=== PATIENT | male | born 1935 | race Caucasian/White ===

== ENCOUNTER 2019-11-17 18:03 | Emergency (ER) | payer OTHER ==
[~2019-11-17] VITALS: Ht 160 cm; Wt 68.0 kg
--- NOTE | 2019-11-17 18:03 | NUR ---
Placed in room 1. Placed on armored car guard and driver, blood pressure machine and pulse oximeter. To gown for exam. Side rails up. Report given to NICOLASA Monzon.
--- NOTE | 2019-11-17 18:06 | NUR ---
ECG done at bedside as ordered by Dr. Chrales. Patient tolerated the procedure well. Report given to
[2019-11-17 18:07] VITALS: BP_SYST 116
--- NOTE | 2019-11-17 18:08 | NUR ---
ER at bedside examining patient.
--- NOTE | 2019-11-17 18:11 | NUR ---
pt arrives from a chemo center. Pt was receiving chemo when he became hypotensive w/ a SBP in the 70's. PT received is currently infusing NS 1l. IV is on the LFA 22g. Current BP is 132/69, HR 92, RR 18, 97.2. Cardiac monitorn placed. Will continue to monitor.
[2019-11-17] MEDS ORDERED: ASPIRIN 81 MG TAB.CHEW PO ONE (18:30)
--- NOTE | 2019-11-17 18:38 | NUR ---
medicated the pt w/ Aspirin PO per MD order.
[2019-11-17] MEDS ORDERED: DOCU250C14 PO (18:42)
[2019-11-17] MEDS ORDERED: ACET-73 PO (18:42)
[2019-11-17] MEDS ORDERED: APIX2.5T PO (18:42)
[2019-11-17] MEDS ORDERED: RANI-362 PO (18:42)
[2019-11-17] MEDS ORDERED: MULT-1089 PO (18:42)
[2019-11-17] MEDS ORDERED: CHOL100035 PO (18:42)
[2019-11-17] MEDS ORDERED: METO25TA3 PO (18:42)
[2019-11-17] MEDS ORDERED: HYT1 PO (18:42)
--- NOTE | 2019-11-17 19:15 | NUR ---
Pt report received. Pt AAOx4, family member at bedside and no needs verbalized at this time.
--- NOTE | 2019-11-17 19:18 | NUR ---
report given to Akhil Dyer. Pt is in stable condition.
--- NOTE | 2019-11-17 19:20 | NUR ---
Lab at bedside.
[2019-11-17 19:30] LABS: BASOPHILS % (AUTO) 0.4 % (0.0-2.0); EOSINOPHILS % (AUTO) 0.5 % (0.0-4.0); HEMATOCRIT 31.7 % (36-54); HEMOGLOBIN 10.6 g/dL (14.0-18.0); LYMPHOCYTES # (AUTO) 0.4 K/uL (1.0-5.5); LYMPHOCYTES % (AUTO) 8.8 % (20.5-51.5); MEAN CORPUSCULAR HEMOGLOBIN 30 pg (27-31); MEAN CORPUSCULAR HGB CONC 33 % (32-36); MEAN CORPUSCULAR VOLUME 91 fL (79.0-98.0); MONOCYTES # (AUTO) 0.1 K/uL (0.0-1.0); MONOCYTES % (AUTO) 3.3 % (1.7-9.3); NEUTROPHILS # (AUTO) 3.9 K/uL (1.8-7.7); PLATELET COUNT (AUTO) 51 K/uL (130-430); RED BLOOD CELL COUNT(AUTO) 3.48 MIL/uL (4.2-6.2); RED CELL DISTRIBUTION WIDTH 19.8 % (9.0-15.0); WHITE BLOOD COUNT (AUTO) 4.4 K/uL (4.8-10.8)
[2019-11-17 19:40] LABS: ANION GAP 7 (5-15); CALCIUM 7.8 mg/dL (8.4-11.0); CHLORIDE 107 mmol/L (98-107); CREATININE 1.56 mg/dL (0.55-1.30); GLUCOSE 183 mg/dL (70-99); POTASSIUM 4.9 mmol/L (3.5-5.1); SODIUM SERUM 136 mmol/L (136-145); UREA NITROGEN, BLOOD 27 mg/dL (8-21)
[2019-11-17 19:53] LABS: ALANINE AMINOTRANSFERASE 11 U/L (12-78); ALBUMIN 2.4 g/dL (3.4-4.8); ASPARTATE AMINOTRANSFERASE 17 U/L (10-37); TOTAL BILIRUBIN 0.4 mg/dL (0.0-1.0)
--- NOTE | 2019-11-17 20:05 | NUR ---
Dr. Wisdom at bedside.
--- NOTE | 2019-11-17 20:15 | NUR ---
Pt denies pain or discomfort, no needs verbalized. Addendum: 11/17/19 at 2132 by ROXANN [address] to [facility] FREIGHT COORDINATOR. Patent and secure, no s/s infiltration.
[2019-11-17] MEDS ORDERED: NS 500 ML IV ONE (20:30)
--- NOTE | 2019-11-17 20:55 | NUR ---
Maria Fernanda renee in ED - 11/17/19 at 2104 by KALANIJ Pt to CT via W/C in stable condition.
--- NOTE | 2019-11-17 21:00 | NUR ---
Note thelma in ED - 11/17/19 at 2105 by [email or web address] Pt returns from CT. No needs verbalized at this time.
[2019-11-17 21:15] VITALS: BP_SYST 108
--- NOTE | 2019-11-17 21:15 | NUR ---
Patient given written and verbal discharge instructions and verbalizes understanding. ER MD discussed with patient the results and treatment provided. Patient in stable condition. ID arm band removed. IV catheter removed intact and dressing applied, no active bleeding. Rx of Atarax given. Patient educated on pain management and to follow up with PMD. Pain Scale 0/10. Opportunity for questions provided and answered. Medication side effect fact sheet provided.
== END 2019-11-17 21:15 | disposition home or self-care (01) ==
LOC: SED 18:03
DX: L50.0 Allergic urticaria (principal); N17.9 Acute kidney failure, unspecified; I10 Essential (primary) hypertension; R11.0 Nausea; Z85.9 Personal history of malignant neoplasm, unspecified; Z79.899 Other long term (current) drug therapy
CPT/HCPCS: 36415; 71045; 80053; 82550; 83880; 84484; 85025; 93005; 96360; 99285; J7040

== ENCOUNTER 2020-04-04 16:23 | Emergency (ER) | payer OTHER ==
[~2020-04-04] VITALS: Ht 170.2 cm; Wt 49.9 kg
[2020-04-04 16:23] VITALS: BP_SYST 79
[~2020-04-04 16:23] MED LIST: ACET-73 PO; APIX2.5T PO; CHOL100035 PO; DOCU250C14 PO; HYT1 PO; METO25TA3 PO; MULT-1089 PO; RANI-362 PO
--- NOTE | 2020-04-04 16:23 | NUR ---
Patient placed in trendelenburg position.
--- NOTE | 2020-04-04 16:23 | NUR ---
Placed in room 1. Placed on radiation monitor, blood pressure machine and pulse oximeter. To gown for exam. Side rails up.
--- NOTE | 2020-04-04 16:23 | NUR ---
Patient brought in via EMS from home for evaluation of ALOC. Per paramedics patient has been less communicative, and is hypotensive. Family is seeking hospice services.
[2020-04-04] MEDS ORDERED: NACL 0.9% 2,000 ML IV ONE (16:45)
--- NOTE | 2020-04-04 16:50 | NUR ---
ER Dr. Charles at bedside examining patient.
[2020-04-04 17:16] LABS: LYMPHOCYTES # (AUTO) 0.2 K/uL (1.0-5.5); MEAN CORPUSCULAR HEMOGLOBIN 29 pg (27-31)
--- NOTE | 2020-04-04 17:31 | NUR ---
Patient's wishes to be called for updates at .
[2020-04-04] MEDS ORDERED: APIX2.5T PO (17:34)
[2020-04-04] MEDS ORDERED: METO25TA6 PO (17:34)
[2020-04-04 17:35] LABS: ANION GAP 17 (5-15); CHLORIDE 119 mmol/L (98-107); CREATININE 3.64 mg/dL (0.55-1.30); GLUCOSE 84 mg/dL (70-99); SODIUM SERUM 157 mmol/L (136-145)
--- NOTE | 2020-04-04 17:35 | NUR ---
Medication reconciliation completed with information provided by patient's . Any prior medication reconciliation on file was reviewed and corrected.
[2020-04-04 17:38] LABS: ALANINE AMINOTRANSFERASE 29 U/L (12-78); ALBUMIN 1.3 g/dL (3.4-4.8); ASPARTATE AMINOTRANSFERASE 91 U/L (10-37); LACTATE DEHYDROGENASE 533 U/L (85-227); TOTAL BILIRUBIN 0.8 mg/dL (0.0-1.0)
[2020-04-04 17:39] LABS: BASOPHILS % (AUTO) 0.4 % (0.0-2.0); EOSINOPHILS # (AUTO) 0.5 K/uL (0.0-0.4); EOSINOPHILS % (AUTO) 11.8 % (0.0-4.0); HEMATOCRIT 31.9 % (36-54); HEMOGLOBIN 9.8 g/dL (14.0-18.0); LYMPHOCYTES % (AUTO) 4.7 % (20.5-51.5); MEAN CORPUSCULAR HGB CONC 31 % (32-36); MEAN CORPUSCULAR VOLUME 95 fL (79.0-98.0); MONOCYTES # (AUTO) 0.1 K/uL (0.0-1.0); MONOCYTES % (AUTO) 1.3 % (1.7-9.3); NEUTROPHILS # (AUTO) 3.2 K/uL (1.8-7.7); NEUTROPHILS % (AUTO) 81.8 % (40.0-70.0); RED BLOOD CELL COUNT(AUTO) 3.35 MIL/uL (4.2-6.2); RED CELL DISTRIBUTION WIDTH 17.7 % (9.0-15.0); WHITE BLOOD COUNT (AUTO) 3.9 K/uL (4.8-10.8)
[2020-04-04 17:47] LABS: POTASSIUM 5.9 mmol/L (3.5-5.1)
[2020-04-04 17:48] LABS: UREA NITROGEN, BLOOD 157 mg/dL (8-21)
[2020-04-04 17:51] LABS: PLATELET COUNT (AUTO) 20 K/uL (130-430)
[2020-04-04] MEDS ORDERED: cefTRIAXone 1 GM in D5W 50 ML IV ONE (18:00)
[2020-04-04] MEDS ORDERED: NACL 0.9% 1,000 ML IV ONE (18:15)
--- NOTE | 2020-04-04 18:15 | NUR ---
Agonal breathing noted, not able to get blood pressure, pupils non-reactive to light. Dr. Charles notified.
[2020-04-04] MEDS ORDERED: cefTRIAXone 1 GM VIAL ONE (18:27)
--- NOTE | 2020-04-04 18:30 | NUR ---
Patient . Verified by Dr. Charles.
--- NOTE | 2020-04-04 18:38 | NUR ---
[facility] notified. Spoke with Rona, referral number [id number]. Patient not eligible for donation.
--- NOTE | 2020-04-04 18:42 | NUR ---
Spoke with [facility] Coroner Billy, she stated that family can release his body to a mortuary.
[2020-04-04 18:48] LABS: INR 1.3 (0.80-1.20); PROTHROMBIN TIME 13.1 SECS (9.5-12.5)
[2020-04-04 18:54] LABS: CKMB RELATIVE INDEX 0.5 (0.0-2.9); CREATINE KINASE MB 3.5 ng/mL (0-3.6)
--- NOTE | 2020-04-04 19:10 | NUR ---
Post mortem care performed. Body moved to storage with security and EMT.
[2020-04-04 19:30] LABS: BILIRUBIN,URINE 1+ (NEGATIVE); BLOOD, URINE 2+ (NEGATIVE); CLARITY/URINE CLOUDY (CLEAR); COLOR,URINE YELLOW (YELLOW); GLUCOSE,URINE NEGATIVE (NEGATIVE); KETONES,URINE TRACE (NEGATIVE); LEUKOCYTE ESTERASE ,URINE NEGATIVE (NEGATIVE); NITRITE, URINE NEGATIVE (NEGATIVE); PH,URINE 5.5 (5.0-8.0); PROTEIN URINE TRACE (NEGATIVE); UROBILINOGEN,URINE 0.2 (0.2-1.0)
[2020-04-04 20:03] LABS: C-REACTIVE PROTEIN QUANT 51.7 mg/dL (0-0.5)
[2020-04-04 20:06] LABS: BACTERIA,URINE MANY /HPF (None Seen); COARSE GRANULAR CASTS,URINE 0-10 /LPF (None Seen); MUCUS,URINE 2+ /LPF (None Seen)
== END 2020-04-04 18:30 | disposition expired ==
LOC: SED 16:23
DX: I46.9 Cardiac arrest, cause unspecified (principal); I24.9 Acute ischemic heart disease, unspecified; C88.0 Waldenstrom macroglobulinemia; R62.7 Adult failure to thrive; K72.90 Hepatic failure, unspecified without coma; I10 Essential (primary) hypertension; R41.82 Altered mental status, unspecified
CPT/HCPCS: 36415; 36600; 71045; 80053; 81000; 81025; 82550; 82553; 82728; 82803; 83605; 83615; 83880; 84484; 85025; 85379; 85384; 85610; 85730; 86140; 87040; 87086; 87186; 93005; 96361; 96365; 99291; J0696; J7030